=== PATIENT | female | born 1980 | race Caucasian/White ===

== ENCOUNTER 2016-11-27 12:36 | Day surgery (SDC) | payer OTHER ==
[~2016-11-27 12:36] MED LIST: DEXAMETHASONE 4 MG/ML VIAL IVP ONE; GLYCOPYRROLATE 1 MG/5 ML VIAL IVP ONE; LIDOCAINE-MPF 2% 5 ML VIAL IM ONE; MIDAZOLAM 2 MG/2 ML VIAL IVP ONE; NEOSTIGMINE 1 MG/1 ML 10 ML MDV IVP ONE; PROPOFOL 200 MG/20 ML VIAL IVP ONE; ROCURONIUM 50 MG/5 ML VIAL IVP ONE; SUCCINYLCHOLINE 200 MG/10 ML VIAL IVP ONE; fentaNYL 100 MCG/2 ML VIAL IVP ONE
[2016-11-27] MEDS ORDERED: HYDROmorphone 1 MG/ML SYRINGE IVP STA ×2 (12:47→14:14)
[2016-11-27] MEDS ORDERED: ONDANSETRON 4 MG/2 ML VIAL IVP STA (12:47)
[2016-11-27] MEDS ORDERED: SODIUM CHLORIDE 0.9% 1,000 ML IV ONE ×2 (12:47→17:31)
--- NOTE | 2016-11-27 12:50 | ED Physician Documentation ---
PD HPI ABD PAIN - Stated complaint Stated Complaint: ABD PAIN - Chief complaint Chief Complaint: Abd Pain - History obtained from History obtained from: Patient - History of Present Illness Timing - onset: Other (This is a G5 now G6, with hx two ectopics, 1 miscarriage and 2 live births with LMP 10/16, pos home UPT on 11/15 With sudden onset pelvic pain starting about an hour ago without bleeding. She is mildly nauseous. Feels similar to prior ectopic.) Review of Systems Ten Systems: 10 systems reviewed and negative Constitutional: denies: Fever, Chills Nose: reports: Reviewed and negative Cardiac: reports: Reviewed and negative Respiratory: reports: Reviewed and negative PD PAST MEDICAL HISTORY - Past Medical History Cardiovascular: None Respiratory: None Neuro: None Endocrine/Autoimmune: None - Past Surgical History Past Surgical History: No - Present Medications Home Medications: Ambulatory Orders Medication Instructions Recorded Confirmed Levothyroxine Sodium [Synthroid] 25 mcg PO DAILY 04/21/16 11/27/16 Pnv with Ca,No.72/Iron,Carb/FA 1 tab PO DAILY 05/01/16 11/27/16 [ Plus Iron Tablet] - Allergies Allergies/Adverse Reactions: Allergies Allergy/AdvReac Type Severity Reaction Status Date / Time No Known Drug Allergies Allergy Verified 04/21/16 18:22 - Social History Does the pt smoke?: No Smoking Status: Never smoker Does the pt drink ETOH?: No Does the pt have substance abuse?: No - Family History Family history: reports: Non contributory PD ED PE NORMAL - Vitals Vital signs reviewed: Yes - General General: Alert and oriented X 3, No acute distress - HEENT HEENT: PERRL, EOMI - Neck Neck: Supple, no meningeal sign, No bony TTP - Cardiac Cardiac: RRR, No murmur - Respiratory Respiratory: No respiratory distress, Clear bilaterally - Abdomen Abdomen: Normal bowel sounds, Soft, Non tender - Back Back: No CVA TTP, No spinal TTP - Derm Derm: Normal color, Warm and dry - Extremities Extremities: No edema, No calf tenderness / cord - Neuro Neuro: Alert and oriented X 3, Normal speech - Psych Psych: Normal mood, Normal affect Results - Vitals Vitals: Vital Signs - 24 hr 11/27/16 11/27/16 12:39 14:10 Temperature 36.5 C 36.5 C Heart Rate 82 82 Respiratory 22 18 Rate Blood Pressure 122/70 122/70 O2 Saturation 99 99 Oxygen O2 Source Room air - Labs Labs: Laboratory Tests 11/27/16 11/27/16 11/27/16 12:55 12:55 12:55 WBC 8.5 RBC 4.04 L Hgb 12.1 Hct 35.2 L MCV 87.2 MCH 30.0 MCHC 34.4 RDW 12.7 Plt Count 209 MPV 8.4 Neut # 5.5 Lymph # 2.0 Leslie # 0.7 Eos # 0.2 Baso # 0.0 Absolute Nucleated RBC 0.00 Nucleated RBCs 0.0 Sodium 136 Potassium 3.7 Chloride 102 Carbon Dioxide 25 Anion Gap 9.0 BUN 10 Creatinine 0.6 Estimated GFR (MDRD) 114 Glucose 107 H Calcium 9.1 Total Bilirubin 0.6 AST 22 ALT 19 Alkaline Phosphatase 69 Total Protein 7.8 Albumin 4.3 Globulin 3.5 Albumin/Globulin Ratio 1.2 Lipase 41 HCG, Quant 3234.00 Blood Type Antibody Screen 11/27/16 12:55 WBC RBC Hgb Hct MCV MCH MCHC RDW Plt Count MPV Neut # Lymph # Leslie # Eos # Baso # Absolute Nucleated RBC Nucleated RBCs Sodium Potassium Chloride Carbon Dioxide Anion Gap BUN Creatinine Estimated GFR (MDRD) Glucose Calcium Total Bilirubin AST ALT Alkaline Phosphatase Total Protein Albumin Globulin Albumin/Globulin Ratio Lipase HCG, Quant Blood Type A NEGATIVE Antibody Screen NEGATIVE - Rads (name of study) Pelvic sono Radiology: Discussed with rads PD MEDICAL DECISION MAKING - ED course ED course: 36yo with H/O ectopic preg present with pelvic pain, BHCG above discriminatory zone. Sono with FF but no IUP concerning for ectopic. Spoke with Dr Johnson at 2: 23pm and will see pt in ED, likely to OR. Departure - Departure Disposition: ED Transfer to [facility] Clinical Impression: Early stage of Ectopic Qualifiers: Location of ectopic : unspecified location Intrauterine status: without intrauterine Qualified Code(s): O00.90 - Unspecified ectopic without intrauterine Condition: Stable
[2016-11-27] MEDS ORDERED: ONDANSETRON 4 MG/2 ML VIAL ONE (13:01)
[2016-11-27] MEDS ORDERED: HYDROmorphone 1 MG/ML SYRINGE ONE ×2 (13:01→14:23)
[2016-11-27 13:09] LABS: BASOPHILS % (AUTO) 0.5 %; EOSINOPHILS # (AUTO) 0.2 10^3/uL (0.0-0.7); EOSINOPHILS % (AUTO) 1.9 %; HCT - HEMATOCRIT 35.2 % (37.0-47.0); HGB - HEMOGLOBIN 12.1 g/dL (12.0-16.0); MEAN CORPUSCULAR HGB CONC 34.4 g/dL (32.0-36.0); MEAN CORPUSCULAR VOLUME 87.2 fL (81.0-99.0); MEAN PLATELET VOLUME 8.4 fL (7.9-10.8); MONOCYTES # (AUTO) 0.7 10^3/uL (0.0-1.0); MONOCYTES % (AUTO) 8.2 %; NEUTROPHILS # (AUTO) 5.5 10^3/uL (1.5-6.6); NEUTROPHILS % (AUTO) 65.4 %; RED BLOOD COUNT 4.04 10^6/uL (4.20-5.40); RED CELL DISTRIBUTION WIDTH 12.7 % (12.0-15.0); UNCORRECTED WHITE BLOOD COUNT 8.5 x10^3/uL; WHITE BLOOD COUNT 8.5 x10^3/uL (4.8-10.8)
[2016-11-27 13:14] LABS: ALBUMIN/GLOBULIN RATIO 1.2 (1.0-2.2); BILIRUBIN,TOTAL 0.6 mg/dL (0.2-1.0); CALCIUM 9.1 mg/dL (8.5-10.3); CREATININE 0.6 mg/dL (0.4-1.0); POTASSIUM 3.7 mmol/L (3.5-5.0); TOTAL PROTEIN 7.8 g/dL (6.7-8.2)
--- NOTE | 2016-11-27 14:43 | Ultrasound Preliminary Report ---
Exam: US OB First Trimester IMPRESSION: No evidence of an intrauterine gestation. No definite extrauterine gestation is identifie d, but there is echogenic fluid present, right greater than left, compatible with hemorrhage. Critical result: Results discussed with Dr. Marti on 11/27/2016 at 1440 hrs. [facility] SITE ID: [id number]
--- NOTE | 2016-11-27 14:45 | Ultrasound Report ---
REVISED: THIS REPORT WAS ORIGINALLY SIGNED ON 11/27/2016 @ 1445. ORDERS LINKED ON 12/13/2016. EXAM: PELVIC ULTRASOUND EXAM DATE: 11/27/2016 01:15 PM. CLINICAL HISTORY: Pelvic pain, beta-hCG 3234. COMPARISON: None. TECHNIQUE: Realtime transabdominal pelvic scan performed to identify the uterus and adnexa and as an overview of other pelvic structures, followed by transvaginal scan to provide greater detail of the uterus and adnexa, with static image documentation. FINDINGS: Uterus: 7.6 x 3.4 x 4.5 cm. Anteverted position. Normal overall size and echotexture. Masses: None. Endometrium: 7 mm. Normal. No intrauterine gestation is identified. Cervix: Unremarkable. Right Ovary: 2.4 x 2.1 x 1.7 cm, volume 5 cc. Normal echotexture and blood flow. Left Ovary: 3.2 x 2.3 x 1.6 cm, volume 6 cc. Likely corpus luteum, measuring 2.2 x 2.1 x 1.8 cm. Free Fluid: Right greater than left free fluid, with internal echoes, most compatible with hemorrhage. Other: None. IMPRESSION: No evidence of an intrauterine gestation. No definite extrauterine gestation is identified, but there is echogenic fluid present, right greater than left, compatible with hemorrhage. Critical result: Results discussed with Dr. Marti on 11/27/2016 at 1440 hrs. [facility] Referring Provider Line: [phone] SITE ID: [id number]
[2016-11-27] MEDS ORDERED: BUPIVACAINE 0.25%-EPI 1:200000 PF 10 ML VIAL SUBQ ONE ×2 (17:51)
[2016-11-27] MEDS ORDERED: PROPOFOL 200 MG/20 ML VIAL IVP ONE (18:00)
[2016-11-27] MEDS ORDERED: MIDAZOLAM 2 MG/2 ML VIAL IVP ONE (18:00)
[2016-11-27] MEDS ORDERED: DEXAMETHASONE 4 MG/ML VIAL IVP ONE (18:00)
[2016-11-27] MEDS ORDERED: ROCURONIUM 50 MG/5 ML VIAL IVP ONE (18:00)
[2016-11-27] MEDS ORDERED: GLYCOPYRROLATE 1 MG/5 ML VIAL IVP ONE (18:00)
[2016-11-27] MEDS ORDERED: LIDOCAINE-MPF 2% 5 ML VIAL IM ONE (18:00)
[2016-11-27] MEDS ORDERED: SUCCINYLCHOLINE 200 MG/10 ML VIAL IVP ONE (18:00)
[2016-11-27] MEDS ORDERED: NEOSTIGMINE 1 MG/1 ML 10 ML MDV IVP ONE (18:00)
[2016-11-27] MEDS ORDERED: fentaNYL 100 MCG/2 ML VIAL IVP ONE (18:00)
[2016-11-27] MEDS ORDERED: LACTATED RINGERS 1,000 ML IV ONE (18:06)
[2016-11-27] MEDS ORDERED: KETOROLAC 15 MG/ML VIAL ONE (18:43)
[2016-11-27] MEDS ORDERED: fentaNYL 100 MCG/2 ML VIAL ONE (18:44)
--- NOTE | 2016-11-27 18:49 | OPERATIVE REPORT ---
Operative Report - Other Other Information/Narrative: Date of Operation: 11/27/2016 Surgeon: Akanksha Johnson DO FACOG Chief Internal Auditor: None [facility] Nurse: Julia Orosco CRNA Anesthesia: GET Pre-op Dx: 1. 36 yo 2. Left ectopic 3. Hemoperitoneum Post-op Dx: 1. 36 yo 2. Ruptured left ectopic 3. Hemoperitoneum Procedure: Laparoscopic left salpingectomy and partial right salpingectomy Findings: 1. Hemoperitoneum, about 200 mL 2. Ruptured left ectopic with clot and likely POC in the abdomen 3. Active bleed in the mid-portion of the left tube and right tubal stump 4. Normal bilateral ovaries and uterus 5. Normal liver edge 6. Normal appendix 7. No significant findings of adhesions nor endometriosis Specimens: 1. Right fallopian tube segment 2. Left fallopian tube and likely POC Drains: None EBL: 200 mL Complications: None Dictation #: [id number]
[2016-11-27] MEDS: HYDROmorphone 1 MG/ML SYRINGE ONE ×3 (19:10→19:48)
[2016-11-27] MEDS ORDERED: HYDROcod/ACETAM 5/325 MG TABLET ONE ×2 (19:24→19:44)
[2016-11-27] MEDS ORDERED: HYDROcod/ACET 5/325 Prepack 6 PO STA (19:40)
[2016-11-27] MEDS ORDERED: HYDROcod/ACET 5/325 Prepack 6 PO ONE (19:40)
[2016-11-27 19:52] VITALS: BP 119/75
--- NOTE | 2016-11-28 20:04 | OPERATIVE REPORT ---
DATE OF SURGERY: 11/27/2016 00:00:00 PREOPERATIVE DIAGNOSIS: 1. A 36-year-old 6, para 2-1-2-2. 2. Left ectopic . 3. Hemoperitoneum. POSTOPERATIVE DIAGNOSIS: 1. A 36-year-old 6, para 2-1-2-2. 2. Ruptured left ectopic . 3. Hemoperitoneum. NAME OF PROCEDURES: Laparoscopic left salpingectomy and partial right salpingectomy. SURGEON: Akanksha Johnson D.O. PEDIATRIC OPHTHALMOLOGIST: None. ANESTHESIA: General endotracheal. HIGH SCHOOL LEARNING SUPPORT TEACHER: Julia Orosco CRNA FINDINGS: 1. Hemoperitoneum of about 200 mL. 2. Ruptured left ectopic with clot and likely products of conception in the abdomen. 3. Active bleed in the midportion of the left fallopian tube, as well as in the right tubal stump. 4. Normal bilateral ovaries and uterus. 5. Normal liver edge. 6. Normal appendix. 7. No significant findings of adhesions, no endometriosis. SPECIMENS: 1. Right fallopian tube segment. 2. Left fallopian tube with likely products of conception. DRAINS: None. ESTIMATED BLOOD LOSS: 200 mL. COMPLICATIONS: None. BRIEF HISTORY: This is a patient of the [facility]. She presented to the emergency department with complaints of new onset abdominal pain in the face of a positive home test. The patient was worked up, and there was a high likelihood of her having an ectopic in the left fallopian tube. This patient has had a history of a right ectopic , with the first time being treated with methotrexate and the second time a surgical removal in April of 2016. Findings are also concerning for hemoperitoneum. I discussed with the patient my recommendations to proceed with a laparoscopy and most likely left salpingectomy. I explained to the patient the risks, benefits, alternatives, indications, and expectations of a laparoscopic left salpingectomy. Included in our discussion were the risks of hemorrhage, infection, and damage to surrounding organs. With respect to damage to surrounding organs, this may include, but is not limited to inadvertent laceration, cauterization, or ligation of adjacent intestines, ureters, and bladder. Furthermore, with this procedure, the patient will be sterile and no longer able to have children naturally. Though quite upset understandably, the patient was in agreement with proceeding with surgery. Consent forms have been signed. OPERATION IN DETAIL: The patient was identified and consented. She was taken to the operating room, where IV access was already in place. She was then given sequential compression devices, which were placed on her lower extremities and turned on. The patient was then given satisfactory general endotracheal tube anesthesia per Julia Orosco. The patient had emptied her bladder prior to surgery, so in and out catheterization was not necessary. A time-out was performed, which correctly identified the patient, site of procedure, and the procedure itself. The patient was then prepped and draped in the normal sterile fashion in lithotomy position with her left arm tucked. Antibiotics were not indicated in this case. Three port sites were first identified. The first two were 5 mm ports placed in the subumbilical fold and then in the right lower quadrant two fingerbreadths superior and medial to the anterior superior iliac spine. The patient's previous right lower quadrant laparoscopic port site was not used because I felt it was too close to the inferior epigastric artery. The patient' s previous laparoscopic port site in the left lower quadrant was used since it was approximately two fingerbreadths medial and superior to its respective anterior superior iliac spine. All port sites were injected with a total of 0.25% lidocaine with epinephrine 10 mL. Entrance into the abdomen was first made with a Visi-Port trocar in the subumbilical fold. Entrance into the abdomen was confirmed visually, and no trauma to the intraabdominal organs was noted. CO2 gas was then insufflated into the abdomen, and thus obtaining satisfactory pneumoperitoneum. Initial inspection in the pelvis revealed a large amount of blood as well as an organized ball of clot with what appeared to be fibrin organization. I would assume that this was the ruptured ectopic . The abdomen was then copiously irrigated and suctioned. Closer inspection of the pelvis revealed that the patient had undergone a subtotal excision of her right fallopian tube. A small portion of the right fallopian tube at its insertion in the uterus was seen. This small portion of fallopian tube was actively bleeding. The diameter of the right tubal ostia was very small, and I would not imagine that a would rupture from this side of the uterus. The right ovary was within normal limits, as well as the left ovary and uterus itself. Closer inspection of the left fallopian tube showed that there was some active bleeding in the midportion of the fallopian tube. I suspect this is where the had ruptured. After confirming my suspicion that she most likely had a ruptured left ectopic , I proceeded to a left salpingectomy as well as excision of the remaining portion of the right fallopian tube as it was actively bleeding. With a LigaSure, I then cauterized and excised both fallopian tubes. She was hemostatically stable after completion of the excision. Exploration of the upper abdomen revealed a normal appendix, and there was some blood in the right gutter by the ascending colon. There was also a normal appendix and left and right liver edges. No blood was seen in the upper abdomen. Also of note, there were no significant adhesions nor endometriosis seen in the patient's abdomen or pelvis. At this point in time, the surgery had been completed. The surgical specimens were then removed with the EndoCatch laparoscopic instrument. The specimens were sent in two separate portions, with one being the remaining portion of the right fallopian tube and the other the left fallopian tube in its entirety and the suspected ruptured ectopic . At this point in time, the procedure had been completed. The 12 mm trocar port site was then closed with a single interrupted stitch of 0-Vicryl using the Noah-Ilia System. The CO2 gas was then allowed to egress into the atmosphere, relieving the pneumoperitoneum. All three trocar sites were then closed with 4-0 Monocryl in a subcuticular fashion. Dermabond was then placed on top of all three incision sites. The patient tolerated the procedure well and was taken back to the recovery room in stable and awake condition. She will be discharged to home later today after postoperative criteria are met. I have written out prescriptions for ibuprofen as well as Vicodin for the patient's postoperative pain control. She is to follow up with myself at [facility] in two weeks for routine postoperative evaluation. I will provide pictures with written descriptions of the laparoscopic surgery. All sponge, lap, and needle counts were correct x2 per nurse report. 19:9:00 JOB #: [id number] EXT JOB #:[id number] [email or web address]
--- NOTE | 2016-11-29 07:56 | PREOP HISTORY & PHYSICAL ---
DATE OF ADMISSION/SURGERY: 11/27/2016 IDENTIFICATION: This is a 36-year-old, G6, P2-1-2-2 with a positive test at home. LMP is 10/16/2016. HISTORY OF PRESENT ILLNESS: This is a patient of the [facility] who presented to [facility] Emergency Department with complaints of sudden onset of pelvic pain for about an hour. She denies any bleeding; is mildly nauseated. She recalls that these symptoms are very similar to her previous ectopic most recently in April 2016. Patient unfortunately was under the impression that she only had a partial salpingectomy with her surgery in April. I clarified with the patient that the pathology report showed a distorted fallopian tube measuring 6.0 x 4.0 x 3.0 cm, which is clinically consistent with an entire fallopian tube. She was understandably upset, as it was her intention to have another baby. I would assume that patient felt that with a partial salpingectomy, this would mean that she had 2 functioning fallopian tubes. I tried to clarify with her that regardless if she had a partial or complete salpingectomy, she only had 1 potentially viable fallopian tube. In any event, the patient understandably is upset, since it was her intention, again, to have another baby. PAST MEDICAL HISTORY: Hypothyroidism. PAST SURGICAL HISTORY: On 05/07/2016, laparoscopic right salpingectomy. ALLERGIES: NO KNOWN DRUG ALLERGIES. MEDICATIONS 1. Synthroid 25 mcg 1 tab p.o. daily. 2. Vitamins. SOCIAL HISTORY: She denies any alcohol or illicit drug use. Patient recalls that she smoked for a short amount of time when she was 19 years old. She no longer smokes. 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 Her is King, and they have 2 daughters, Milena, and Simon. King is currently employed with the [email or web address]. PAST OBSTETRICAL HISTORY 1. One spontaneous vaginal delivery at 21 weeks' gestation when patient was 20 years of age. 2. Two term spontaneous vaginal deliveries of daughters Milena and Simon. She had progesterone shots throughout her pregnancies. 3. In 2009, she had an ectopic on the right, which was treated with methotrexate. 4. On 05/07/2016, laparoscopic right salpingectomy for an ectopic . Again, pathology showed a fallopian tube with organized blood clot and chorionic villi, consistent with an ectopic , no malignancy. Designated right fallopian tube ectopic consistent with a large and distorted fallopian tube with a hemorrhagic appearance measuring 6.0 x 4.0 x 3.0 cm, which appears to be disrupted at its surface. A section of the fimbriated end is submitted in cassette #1. The specimen is serially sectioned to reveal a thickened wall with extensive dense hemorrhagic-appearing material. PAST GYNECOLOGICAL HISTORY: Patient states that her Pap smears have been within normal limits, and her last Pap smear was with the delivery of her last child, Simon, who is approximately 2 years of age. Patient stated that she does have a history of genital herpes. She denies any knowledge of any irregularity with her uterus with respect to anatomical anomalies or leiomyomata. FAMILY HISTORY: Maternal grandmother had breast cancer. REVIEW OF SYSTEMS: Negative unless otherwise stated. Again, she is having some small amount of abdominal pain and some nausea. She denies any vaginal bleeding or vomiting. OBJECTIVE VITAL SIGNS: Temperature is 36.5 and 36.5. Blood pressure 122/70 and 122/70. Heart rate 82, respiratory rate 22. GENERAL: Patient is a well-developed, well-nourished female who is quite emotionally upset. She is alert and oriented x3. ABDOMEN: Soft, nontender. Prior laparoscopic incisions have been well healed. There are no peritoneal signs. STUDIES Laboratory tests show a white count of 8.5, hemoglobin of 12.1, and a hematocrit of 35.2. Platelets are 209. Potassium 3.7, creatinine 0.7, glucose 107, AST is 22, ALT 19, lipase 41, quantitative hCG is 3234. She is A negative and antibody screen negative as well. Preliminary ultrasound today shows no evidence of intrauterine , no definite extrauterine gestation is identified, but there is echogenic fluid present, right greater than left, compatible with hemorrhage. ASSESSMENT 1. A 36-year-old, G6, P2-1-2-2. 2. Left ectopic . PLAN 1. I discussed with the patient in detail my recommendations to proceed with a laparoscopic left salpingectomy. Included in the risks were hemorrhage, infection, and damage to surrounding organs, which would most likely be an inadvertent laceration, cauterization, or ligation of adjacent intestines, ureters, or bladder. With this procedure, she would be sterilized. She does have the option of , should she proceed with in vitro fertilization, which unfortunately is upwards of $30,000 with no guarantee of a healthy baby. After all patient's questions were answered to her saturation, she verbalized her desire to proceed with surgery. Consent forms have been signed. 2. I discussed with the patient postoperative care including activity as tolerated, and that she should use her prescription of ibuprofen 800 mg. In addition, I have provided a prescription for Vicodin for any breakthrough pain. Patient is to see me at [facility] in 2 weeks for a routine postoperative visit. Patient should call should she have any worsening fevers, chills, abdominal pain, nausea, or vomiting. 3. Given patient's misunderstanding of her 04/2016 ectopic and its surgical outcomes, I will be particularly cognizant in making sure that both patient and her , King, have a firm understanding of my surgical findings and the procedures that will be performed today. I intend to give the patient a copy of today's laparoscopic pictures, along with descriptions on the photographs of what has happened. JOB #: [id number] EXT JOB #:[id number] [email or web address]
== END 2016-11-27 14:52 | disposition home or self-care (01) ==
LOC: ED 12:36 → SDS 14:51
PROVIDERS: ATTEND Obstetrics & Gynecology
PROC: 0UT64ZZ Resection of Left Fallopian Tube, Percutaneous Endoscopic Approach (ICD-10-PCS; 2016-11-27)
PROC: 0UB54ZZ Excision of Right Fallopian Tube, Percutaneous Endoscopic Approach (ICD-10-PCS; 2016-11-27)
PROC: 10T24ZZ Resection of Products of Conception, Ectopic, Percutaneous Endoscopic Approach (ICD-10-PCS; principal; 2016-11-27 17:15)
DX: O00.10 Tubal pregnancy without intrauterine pregnancy (principal); O08.1 Delayed or excessive hemorrhage following ectopic and molar pregnancy; K66.1 Hemoperitoneum; N70.11 Chronic salpingitis; N70.01 Acute salpingitis; E03.9 Hypothyroidism, unspecified; Z87.891 Personal history of nicotine dependence; Z80.3 Family history of malignant neoplasm of breast
CPT/HCPCS: 36415; 58661; 59151; 76801; 76817; 80053; 83690; 84702; 85025; 86850; 86900; 86901; 96374; 96376; 99283; 99285; A9270; J1170; J7120; 88305; 99284

== ENCOUNTER 2017-11-01 17:47 | Emergency (ER) | payer OTHER ==
[2017-11-01 17:58] VITALS: BP 128/81
[2017-11-01] MEDS ORDERED: diazePAM 5 MG TABLET PO STA (18:41)
--- NOTE | 2017-11-01 18:43 | ED Physician Documentation ---
PD HPI FOCAL NEURO - Stated complaint Stated Complaint: DIZZIENESS - Chief complaint Chief Complaint: Neuro - History obtained from History obtained from: Patient - History of Present Illness Timing - onset: Today (She has had episodic vertigo that lasts seconds to minutes at most since waking up this morning. It is brought on by leftward head motion. She has never had it before. She tried meclizine without relief. She did vomit once. No headache or fevers. 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 - Present Medications Home Medications: Ambulatory Orders Medication Instructions Recorded Confirmed diazePAM [Valium] 5 mg PO TID PRN #10 tablet 11/01/17 - Allergies Allergies/Adverse Reactions: Allergies Allergy/AdvReac Type Severity Reaction Status Date / Time No Known Drug Allergies Allergy Verified 04/21/16 18:22 - Social History Does the pt smoke?: No Smoking Status: Never smoker Does the pt drink ETOH?: No Does the pt have substance abuse?: No - Immunizations Immunizations are current?: Yes - POLST Patient has POLST: No PD ED PE NORMAL - Vitals Vital signs reviewed: Yes - General General: Alert and oriented X 3, No acute distress - HEENT HEENT: PERRL, EOMI, Ears normal - Neck Neck: Supple, no meningeal sign, No bony TTP - Cardiac Cardiac: RRR, No murmur - Respiratory Respiratory: No respiratory distress, Clear bilaterally - Abdomen Abdomen: Non tender - Neuro Neuro: Alert and oriented X 3, director cost 2-12 intact, Other (Normal finger to nose and heel to carson testing. No nystagmus.) Eye Opening: Spontaneous Motor: Obeys Commands Verbal: Oriented GCS Score: 15 - Psych Psych: Normal mood, Normal affect Results - Vitals Vitals: Vital Signs - 24 hr 11/01/17 17:54 Temperature 37.1 C Heart Rate 96 Respiratory 16 Rate Blood Pressure 128/81 H O2 Saturation 97 Oxygen O2 Source Room air PD MEDICAL DECISION MAKING - ED course ED course: She has had episodic vertigo today in a pattern very consistent with BPPV. An Deborah maneuver was done and she became very symptomatic but it seems successful. - Sepsis Event Vital Signs: Vital Signs - 24 hr 11/01/17 17:54 Temperature 37.1 C Heart Rate 96 Respiratory 16 Rate Blood Pressure 128/81 H O2 Saturation 97 Oxygen O2 Source Room air Departure - Departure Disposition: Home, Self Care Clinical Impression: BPPV (benign paroxysmal positional vertigo) Qualifiers: Laterality: right Qualified Code(s): H81.11 - Benign paroxysmal vertigo, right ear Condition: Good Record reviewed to determine appropriate education?: Yes Instructions: Vertigo Paroxysmal Positional Prescriptions: diazePAM [Valium] 5 mg PO TID PRN #10 tablet PRN Reason: Vertigo Comments: Call your doctor to arrange a follow-up appointment, make the next available appointment. In the interim, return anytime if worse or if new symptoms develop. Your blood pressure was elevated today on check into the emergency department. This does not mean that you have hypertension, it is a common phenomenon to come to the emergency department and have elevated blood pressure. I recommend that you see your primary care physician within the week to have it rechecked when you are feeling better. Forms: Activity restrictions
== END 2017-11-01 19:30 | disposition home or self-care (01) ==
LOC: ED 17:47
DX: H81.11 Benign paroxysmal vertigo, right ear (principal); R03.0 Elevated blood-pressure reading, without diagnosis of hypertension
CPT/HCPCS: 99283; A9270

== ENCOUNTER 2019-10-21 06:56 | Emergency (ER) | payer OTHER ==
[2019-10-21 07:32] LABS: BILIRUBIN,URINE NEGATIVE (NEGATIVE); GLUCOSE, URINE (UA) NEGATIVE (NEGATIVE); KETONES,URINE (UA) NEGATIVE (NEGATIVE); LEUKOCYTE ESTERASE, URINE NEGATIVE (NEGATIVE); NITRITE,URINE NEGATIVE (NEGATIVE); OCCULT BLOOD,URINE NEGATIVE (NEGATIVE); PROTEIN,URINE NEGATIVE (NEGATIVE); UROBILINOGEN,URINE 0.2 (NORMAL) E.U./dL (NORMAL)
--- NOTE | 2019-10-21 07:32 | ED Physician Documentation ---
PD HPI DYSPNEA - Stated complaint Stated Complaint: ELEVATED HEART RATE - Chief complaint Chief Complaint: Cardiac - History obtained from History obtained from: Patient - History of Present Illness Timing - onset: Today (38-year-old woman with history of ectopic , tubal ligation, history of hypothyroidism currently not under replacement therapy. Has a family history of DVT and PE in the mother. A couple weeks ago she had an episode of palpitations, saw her physician who recommended cessation of wine and caffeine. This morning she woke at 1 AM with fast heart rate and mild shortness of breath. There is no pain with it. No dizziness. She tried drinking water and Gatorade which was not helpful. She denies leg pain or swelling. No personal history of DVT or PE. No fevers. No cough. No abdominal pain. No nausea or diarrhea.) Review of Systems Ten Systems: 10 systems reviewed and negative Constitutional: denies: Fever, Chills, Fatigue, Weight Loss (In fact has had a 40 pound weight gain over the last couple of years) Nose: denies: Rhinorrhea / runny nose, Congestion Cardiac: reports: Palpitations. denies: Chest pain / pressure, Pedal edema, Calf pain Respiratory: reports: Dyspnea. denies: Cough PD PAST MEDICAL HISTORY - Past Medical History Cardiovascular: None Respiratory: None Endocrine/Autoimmune: None - Past Surgical History Past Surgical History: Yes /[employer]: Other - Allergies Allergies/Adverse Reactions: Allergies Allergy/AdvReac Type Severity Reaction Status Date / Time No Known Drug Allergies Allergy Verified 10/21/19 07:02 - Social History Does the pt smoke?: No Smoking Status: Never smoker Does the pt drink ETOH?: No Does the pt have substance abuse?: No - Family History Family history: reports: Other (DVT/PE in mom) - Immunizations Immunizations are current?: Yes - POLST Patient has POLST: No PD ED PE NORMAL - Vitals Vital signs reviewed: Yes (mild sinus tach on the monitor) - General General: Alert and oriented X 3, No acute distress - HEENT HEENT: PERRL, EOMI - Neck Neck: Supple, no meningeal sign, No bony TTP - Cardiac Cardiac: Other (mild reg tachy) - Respiratory Respiratory: No respiratory distress, Clear bilaterally - Abdomen Abdomen: Normal bowel sounds, Soft, Non tender - Back Back: No CVA TTP, No spinal TTP - Derm Derm: Normal color, Warm and dry - Extremities Extremities: No edema, No calf tenderness / cord - Neuro Neuro: Alert and oriented X 3, Normal speech Results - Vitals Vitals: Vital Signs - 24 hr 10/21/19 10/21/19 10/21/19 07:00 07:28 08:06 Temperature 36.8 C Heart Rate 106 H 93 93 Respiratory 18 14 18 Rate Blood Pressure 134/80 H 119/76 O2 Saturation 97 100 99 Oxygen O2 Source Room air - EKG (time done) 0729 Rate: Rate (enter#) (90) Rhythm: NSR Enloe: Normal Intervals: Normal OR QRS: Normal Ischemia: Non specific changes (tiny lateral STD) Computer interpretation: Agree with computer - Labs Labs: Laboratory Tests 10/21/19 10/21/19 10/21/19 07:20 07:23 07:23 WBC 9.9 RBC 4.45 Hgb 13.4 Hct 39.9 MCV 89.7 MCH 30.1 MCHC 33.6 RDW 12.4 Plt Count 257 MPV 10.3 Neut # (Auto) 7.7 H Lymph # (Auto) 1.5 Bowie # (Auto) 0.5 Eos # (Auto) 0.0 Baso # (Auto) 0.0 Absolute Nucleated RBC 0.00 Nucleated RBC % 0.0 D-Dimer 206.1 Sodium Potassium Chloride Carbon Dioxide Anion Gap BUN Creatinine Estimated GFR (MDRD) Glucose Calcium Total Bilirubin AST ALT Alkaline Phosphatase Troponin I High Sens Total Protein Albumin Globulin Albumin/Globulin Ratio Lipase TSH Urine Color YELLOW Urine Clarity CLEAR Urine pH 7.0 Ur Specific [place] <=1.005 Urine Protein NEGATIVE Urine Glucose (UA) NEGATIVE Urine Ketones NEGATIVE Urine Occult Blood NEGATIVE Urine Nitrite NEGATIVE Urine Bilirubin NEGATIVE Urine Urobilinogen 0.2 (NORMAL) Ur Leukocyte Esterase NEGATIVE Ur Microscopic Review NOT INDICATED Urine Culture Comments NOT INDICATED Urine HCG, Qual NEGATIVE 10/21/19 10/21/19 10/21/19 07:23 07:23 07:23 WBC RBC Hgb Hct MCV MCH MCHC RDW Plt Count MPV Neut # (Auto) Lymph # (Auto) [place] # (Auto) Eos # (Auto) Baso # (Auto) Absolute Nucleated RBC Nucleated RBC % D-Dimer Sodium 137 Potassium 3.5 Chloride 102 Carbon Dioxide 24 Anion Gap 11.0 BUN 13 Creatinine 0.8 Estimated GFR (MDRD) 81 L Glucose 142 H Calcium 9.2 Total Bilirubin 0.8 AST 21 ALT 17 Alkaline Phosphatase 82 Troponin I High Sens 19.0 H* Total Protein 8.2 Albumin 4.4 Globulin 3.8 Albumin/Globulin Ratio 1.2 Lipase 30 TSH 4.79 Urine Color Urine Clarity Urine pH Ur Specific [place] Urine Protein Urine Glucose (UA) Urine Ketones Urine Occult Blood Urine Nitrite Urine Bilirubin Urine Urobilinogen Ur Leukocyte Esterase Ur Microscopic Review Urine Culture Comments Urine HCG, Qual 10/21/19 09:24 WBC RBC Hgb Hct MCV MCH MCHC RDW Plt Count MPV Neut # (Auto) Lymph # (Auto) [place] # (Auto) Eos # (Auto) Baso # (Auto) Absolute Nucleated RBC Nucleated RBC % D-Dimer Sodium Potassium Chloride Carbon Dioxide Anion Gap BUN Creatinine Estimated GFR (MDRD) Glucose Calcium Total Bilirubin AST ALT Alkaline Phosphatase Troponin I High Sens 14.9 H* Total Protein Albumin Globulin Albumin/Globulin Ratio Lipase TSH Urine Color Urine Clarity Urine pH Ur Specific [place] Urine Protein Urine Glucose (UA) Urine Ketones Urine Occult Blood Urine Nitrite Urine Bilirubin Urine Urobilinogen Ur Leukocyte Esterase Ur Microscopic Review Urine Culture Comments Urine HCG, Qual PD MEDICAL DECISION MAKING - ED course ED course: This is a very pleasant young woman who presents with tachycardic palpitations. Her Apple Watch notes that it was about 150 early this morning. She has a very modest elevation in her troponin. D-dimer negative. Subsequent troponin after 2 hours dropped a little bit. My suspicion is she had a tachyarrhythmia this morning that spontaneously converted. Unclear what this was, she was in sinus rhythm throughout her stay without significant ectopy or arrhythmia. Departure - Departure Disposition: 01 Home, Self Care Clinical Impression: Sinus tachycardia Condition: Good Record reviewed to determine appropriate education?: Yes Instructions: ED Tachycardia Pat PSVT Comments: As discussed, your lab work was notable for a negative d-dimer, normal TSH. Your troponin was very mildly elevated and dropped a few points during your visit here. Given that your heart rate overnight was up to 150, this suggests that you had some sort of tachyarrhythmia overnight that spontaneously resolved. Your rhythm here was normal. Follow-up with your doctor, call her tomorrow, in my opinion you need Holter monitoring and an echocardiogram. Return if worse.
[2019-10-21 07:36] LABS: CLARITY,URINE CLEAR (CLEAR); HCG UR QUAL NEGATIVE
[2019-10-21 07:42] LABS: BASOPHILS % (AUTO) 0.4 %; EOSINOPHILS % (AUTO) 0.4 %; HGB - HEMOGLOBIN 13.4 g/dL (12.0-16.0); LYMPHOCYTES # (AUTO) 1.5 10^3/uL (1.5-3.5); LYMPHOCYTES % (AUTO) 15.2 %; MEAN CORPUSCULAR HEMOGLOBIN 30.1 pg (27.0-31.0); MEAN CORPUSCULAR HGB CONC 33.6 g/dL (32.0-36.0); MEAN CORPUSCULAR VOLUME 89.7 fL (81.0-99.0); MEAN PLATELET VOLUME 10.3 fL (7.9-10.8); MONOCYTES # (AUTO) 0.5 10^3/uL (0.0-1.0); MONOCYTES % (AUTO) 5.5 %; NEUTROPHILS # (AUTO) 7.7 10^3/uL (1.5-6.6); PLT - PLATELET COUNT 257 10^3/uL (130-450); RED BLOOD COUNT 4.45 10^6/uL (4.20-5.40); RED CELL DISTRIBUTION WIDTH 12.4 % (12.0-15.0); WHITE BLOOD COUNT 9.9 x10^3/uL (4.8-10.8)
[2019-10-21 07:45] LABS: ALBUMIN 4.4 g/dL (3.2-5.5); ALBUMIN/GLOBULIN RATIO 1.2 (1.0-2.2); BILIRUBIN,TOTAL 0.8 mg/dL (0.2-1.0); CALCIUM 9.2 mg/dL (8.5-10.3); CREATININE 0.8 mg/dL (0.4-1.0); TOTAL PROTEIN 8.2 g/dL (6.7-8.2)
[2019-10-21 10:21] VITALS: BP 122/77
== END 2019-10-21 10:21 | disposition home or self-care (01) ==
LOC: ED 06:56
DX: R00.0 Tachycardia, unspecified (principal)
CPT/HCPCS: 36415; 80053; 81001; 81003; 81025; 83690; 84443; 84484; 85025; 85379; 87086; 93005; 99284; 99285